=== PATIENT | female | born 1945 | race Caucasian/White ===

== ENCOUNTER → 2018-03-27 | Outpatient (CLI) | payer MEDICARE, BC ==
--- NOTE | 2018-03-27 20:02 | XCELERA REPORT ---
[address] [address] Transthoracic Echocardiogram Report Name: WINSOME WHITNEY Age: 72 yrs Gender: Female : 1945 Patient Status: Preadmit Patient Location: [facility] Study Date: 03/27/2018 03:38 PM Height: 67 in Weight: 202 lb BSA: 2.0 m2 Reason For Study: HTN Ordering Physician: DAVID PERAZA Performed By: Dayanna Roberts Interpretation Summary Mild concentric LVH (11mm) with normal LVEF 70% and stage I LV diastolic dysfunction, Inferior wall hypokinesis, no LV enlargement. 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 with no LVOT gradient. No pulm hypertension, Normal RH size. MMode/2D Measurements & Calculations RVDd: 3.7 cm LVIDd: 4.9 cm FS: 40.1 % Ao root diam: 2.4 cm IVSd: 1.0 cm LVIDs: 2.9 cm EDV(Teich): 110.3 ml LVPWd: 1.0 cm ESV(Teich): 32.4 ml Ao root area: 4.6 cm2 EF(Teich): 70.6 % LA dimension: 3.3 cm Doppler Measurements & Calculations MV E max amanda: MV P1/2t max amanda: Ao V2 max: LV V1 max P.2 cm/sec 63.2 cm/sec 138.1 cm/sec 3.3 mmHg MV A max amanda: MV P1/2t: 94.4 msec Ao max PG: LV V1 max: 78.0 cm/sec 7.6 mmHg 91.3 cm/sec MV E/A: 0.80 MVA(P1/2t): 2.3 cm2 MV dec slope: 195.9 cm/sec2 MV dec time: 0.31 sec PA V2 max: TR max amanda: 106.1 cm/sec 237.5 cm/sec PA max PG: TR max P.6 mmHg 4.5 mmHg Left Ventricle The left ventricular cavity is small. There is mild concentric left ventricular hypertrophy. IVS/PW 11/11 mm. LV EF is 70%. Doppler measurements suggest impaired left ventricular relaxation, which is associated with grade I/IV or mild diastolic dysfunction. There is inferior wall moderate hypokinesis. There is no thrombus. Right Ventricle The right ventricle is not well visualized secondary to technical limitations. The right ventricular systolic function is normal. Atria The right atrium is normal in size. The left atrial size is normal. The interatrial septum is intact with no evidence for an atrial septal defect. Mitral Valve There is mild mitral annular calcification. The mitral valve is normal in structure and function. There is no evidence of mitral valve prolapse. There is no mitral valve stenosis. There is a trace amount of mitral regurgitation. Aortic Valve The aortic valve is normal in structure and functions normally. The aortic valve is sclerotic and shows some degree of functional abnormality. The aortic valve is trileaflet. The aortic valve opens well. There is no aortic valvular vegetation. There is no aortic valve stenosis. No aortic regurgitation is present. Tricuspid Valve Right ventricular systolic pressure is normal. Best estimated RVSP is approximately 26 mm/Hg. Pulmonic Valve There is a trace or physiologic amount of pulmonic regurgitation. Great Vessels The aortic root is normal size. There is aortic root sclerosis/calcification. Effusions There is no pericardial effusion. I WMSI = 1.13 % Normal = 88 Segments Size X - Cannot 1 - Normal 2 - 3 - Akinetic4 - 1-2 small Interpret Hypokinetic Dyskinetic 3-5 moderate 5 - 6-14 large Aneurysmal 15-16 diffuse : DAVID PERAZA > Ruben Mustafa
== END ==
LOC: SP 15:21
PROVIDERS: ATTEND Family Medicine
DX: I10 Essential (primary) hypertension (principal)
CPT/HCPCS: 93306

== ENCOUNTER → 2019-03-05 | Outpatient (CLI) | payer MEDICARE, BC ==
--- NOTE | 2019-03-05 17:45 | RADIOLOGY REPORT (SQ) ---
EXAM DESCRIPTION: U/S THYROID/SFT TISS HD NECK COMPLETED DATE/TIME: 03/05/2019 5:13 pm REASON FOR STUDY: R22.1 LOCALIZED SWELLING, MASS AND LUMP, NECK R22.1 LOCALIZED SWELLING, MASS AND LUMP, NECK COMPARISON: None. TECHNIQUE: Dynamic and static grayscale images acquired of the localized site of clinical concern an d recorded on PACS. Additional selected color Doppler and spectral images recorded. SITE OF CONCERN: Neck LIMITATIONS: None. FINDINGS: SKIN AND SUBCUTANEOUS TISSUES: No masses. No fluid collections. No edema. No foreign lev s. DEEP SOFT TISSUES/MUSCLES: Normal morphology lymph node at site of indicated palpable concern. No ma sses. No fluid collections. No edema. OTHER: No other significant finding. IMPRESSION: Normal morphology lymph node at site of indicated palpable concern. NO SOFT TISSUE MASS, FLUID COLLECTION, OR FOREIGN BODY. TECHNICAL DOCUMENTATION: JOB ID: [id number] [place]-72 2010 [employer]- All Rights Reserved Reading location - IP/workstation name: [email or web address]
== END ==
LOC: RAD 16:45
PROVIDERS: ATTEND Family Medicine
DX: R22.1 Localized swelling, mass and lump, neck (principal)
CPT/HCPCS: 76536

== ENCOUNTER 2019-09-25 18:06 | Emergency (ER) | payer MEDICARE, BC ==
--- NOTE | 2019-09-25 18:40 | ER Document Report ---
ED Medical Screen (RME) - General Chief Complaint: High Blood Pressure Stated Complaint: HIGH BLOOD PRESSURE Time Seen by Provider: 09/25/19 18:27 Primary Care Provider: DAVID PERAZA MD [Primary Care Provider] - Follow up as needed Notes: 74-year-old female with uncontrolled hypertension due to medication intolerance presents to the emergency department with elevated blood pressure, chest pressure x24 hours, and brief, transient altered mental status approximately 2 days ago. Patient states the chest pressure/pain is central and radiates up into her left shoulder and neck. No diaphoresis, no nausea, no dyspnea on exertion. No neuro deficits at this time. Exam: Well-appearing no acute distress, regular cardiac rate and rhythm, S1-S2 heard, no murmurs I have greeted and performed a rapid initial assessment of this patient. A comprehensive ED assessment and evaluation of the patient, analysis of test results and completion of medical decision making process will be conducted by an additional ED providers. TRAVEL OUTSIDE OF THE [place] IN LAST 30 DAYS: No - Related Data Allergies/Adverse Reactions: doxycycline Allergy (Verified 09/25/19 18:31) erythromycin base Allergy (Verified 09/25/19 18:31) gatifloxacin [From Tequin] Allergy (Verified 09/25/19 18:31) latex Allergy (Verified 09/25/19 18:31) levofloxacin [From Levaquin] Allergy (Verified 09/25/19 18:31) metoprolol Allergy (Verified 09/25/19 18:31) mold Allergy (Verified 09/25/19 18:31) Penicillins Allergy (Verified 09/25/19 18:31) Quinolones Allergy (Verified 09/25/19 18:31) amlodipine Adverse Reaction (Verified 09/25/19 18:31) clarithromycin [From Biaxin] Adverse Reaction (Verified 09/25/19 18:31) clonidine Adverse Reaction (Verified 09/25/19 18:31) epinephrine Adverse Reaction (Verified 09/25/19 18:31) hydrochlorothiazide Adverse Reaction (Verified 09/25/19 18:31) lisinopril Adverse Reaction (Verified 09/25/19 18:31) losartan Adverse Reaction (Verified 09/25/19 18:31) montelukast Adverse Reaction (Verified 09/25/19 18:31) Past Medical History - Social History Frequency of alcohol use: None Drug Abuse: None Physical Exam - Vital signs Vitals: Temp Pulse Resp BP Pulse Ox 97.7 F 90 17 201/105 H 96 09/25/19 18:12 09/25/19 18:12 09/25/19 18:12 09/25/19 18:12 09/25/19 18:12 Course - Vital Signs Vital signs: Temp Pulse Resp BP Pulse Ox 97.7 F 90 17 201/105 H 96 09/25/19 18:12 09/25/19 18:12 09/25/19 18:12 09/25/19 18:12 09/25/19 18:12 Doctor's Discharge - Discharge Referrals: DAVID PERAZA MD [Primary Care Provider] - Follow up as needed
--- NOTE | 2019-09-25 19:18 | RADIOLOGY REPORT (SQ) ---
EXAM DESCRIPTION: CT HEAD WITHOUT COMPLETED DATE/TIME: 09/25/2019 7:06 pm REASON FOR STUDY: neuro deficit, resolved COMPARISON: None. TECHNIQUE: Axial images acquired through the brain without intravenous contrast. Images reviewed wi th bone, brain and subdural windows. Additional sagittal and coronal reconstructions were generated. Images stored on PACS. All CT scanners at this facility use dose modulation, iterative reconstruction, and/or weight based d osing when appropriate to reduce radiation dose to as low as reasonably achievable (ALARA). [facility]: Dose Right [facility]: CareDose [facility]: Dose Right [facility]: Teradose 4D [facility]: Smart Mindscore RADIATION DOSE: CT Rad equipment meets quality standard of care and radiation dose reduction techniq ues were employed. CTDIvol: 53.2 mGy. DLP: 1044 mGy-cm. mGy. LIMITATIONS: None. FINDINGS: VENTRICLES: Normal size and contour. CEREBRUM: No masses. No hemorrhage. No midline shift. No evidence for acute infarction. Normal gra y/white matter differentiation. No areas of low density in the white matter. CEREBELLUM: No masses. No hemorrhage. No alteration of density. No evidence for acute infarction. EXTRAAXIAL SPACES: No fluid collections. No masses. ORBITS AND GLOBE: No intra- or extraconal masses. Normal contour of globe without masses. CALVARIUM: No fracture. PARANASAL SINUSES: No fluid or mucosal thickening. SOFT TISSUES: No mass or hematoma. OTHER: No other significant finding. IMPRESSION: NORMAL BRAIN CT WITHOUT CONTRAST. EVIDENCE OF ACUTE STROKE: NO. COMMENT: Quality ID # [id number]: Final reports with documentation of one or more dose reduction techniques (e.g., Automated exposure control, adjustment of the mA and/or kV according to patient size, use of iterative reconstruction technique) TECHNICAL DOCUMENTATION: JOB ID: [id number] [employer]- All Rights Reserved Reading location - IP/workstation name: [email or web address]
--- NOTE | 2019-09-25 19:18 | RADIOLOGY REPORT (SQ) ---
EXAM DESCRIPTION: CHEST 2 VIEWS COMPLETED DATE/TIME: 09/25/2019 7:07 pm REASON FOR STUDY: chest pain COMPARISON: None. TECHNIQUE: Frontal and lateral radiographic views of the chest acquired. NUMBER OF VIEWS: Two view. LIMITATIONS: None. FINDINGS: LUNGS AND PLEURA: No opacities, masses or pneumothorax. No pleural effusion. MEDIASTINUM AND HILAR STRUCTURES: No masses or contour abnormalities. HEART AND VASCULAR STRUCTURES: Heart normal size. No evidence for failure. BONES: No acute findings. HARDWARE: None in the chest. OTHER: No other significant finding. IMPRESSION: NO SIGNIFICANT RADIOGRAPHIC FINDING IN THE CHEST. TECHNICAL DOCUMENTATION: JOB ID: [id number] [employer]- All Rights Reserved Reading location - IP/workstation name: [email or web address]
[2019-09-25 19:24] LABS: ABSOLUTE EOSINOPHILS # (AUTO) 0.1 10^3/uL (0.0-0.6); ABSOLUTE LYMPHOCYTES (AUTO) 1.9 10^3/uL (0.5-4.7); ABSOLUTE MONOCYTES (AUTO) 0.5 10^3/uL (0.1-1.4); ABSOLUTE NEUT (AUTO) 4.3 10^3/uL (1.7-8.2); BASOPHILS % (AUTO) 0.5 % (0-2); HEMATOCRIT 45.8 % (36.0-47.0); HEMOGLOBIN 15.4 g/dL (12.0-15.5); LYMPHOCYTES % (AUTO) 27.4 % (13-45); MEAN CORPUSCULAR HEMOGLOBIN 29.6 pg (27.0-33.4); MEAN CORPUSCULAR HGB CONC 33.6 g/dL (32.0-36.0); MEAN CORPUSCULAR VOLUME 88 fl (80-97); MONOCYTES % (AUTO) 6.9 % (3-13); PLATELET COUNT 280 10^3/uL (150-450); RED BLOOD COUNT 5.21 10^6/uL (3.72-5.28); RED CELL DISTRIBUTION WIDTH 14.6 % (11.5-14.0); SEGMENTED NEUTROPHILS % (AUTO) 63.2 % (42-78); TOTAL CELLS COUNTED % (AUTO) 100 %; WHITE BLOOD COUNT 6.8 10^3/uL (4.0-10.5)
[2019-09-25 19:43] LABS: ALKALINE PHOSPHATASE 90 U/L (38-126); ANION GAP 13 (5-19); ASPARTATE AMINO TRANSFERASE 30 U/L (14-36); BILIRUBIN,DIRECT 0.3 mg/dL (0.0-0.4); BILIRUBIN,TOTAL 0.5 mg/dL (0.2-1.3); BLOOD UREA NITROGEN 14 mg/dL (7-20); CALCIUM 10.4 mg/dL (8.4-10.2); CARBON DIOXIDE 30 mmol/L (22-30); CHLORIDE 100 mmol/L (98-107); GLUCOSE 96 mg/dL (75-110); POTASSIUM 4.7 mmol/L (3.6-5.0); TOTAL PROTEIN 8.5 g/dL (6.3-8.2)
--- NOTE | 2019-09-25 21:13 | ER Document Report ---
ED General - General Chief Complaint: High Blood Pressure Stated Complaint: HIGH BLOOD PRESSURE Time Seen by Provider: 09/25/19 18:27 Primary Care Provider: DAVID PERAZA MD [Primary Care Provider] - Follow up as needed Mode of Arrival: Ambulatory Information source: Patient Notes: 74-year-old female presented to ED for complaint of uncontrolled hypertension.. Intolerance to medications. She states she is allergic to have a blood pressure medicine there is. She states she has had some chest pressure for 24 hours with brief transient altered mental status 2 days ago. She states she did have some chest pressure and pain rating to the left shoulder and neck. No diaphoresis no nausea vomiting no dyspnea on ninth oxygen. She has a long history of high b lood pressure. There are no gross neuro deficits noted. She states she did have some numbness in her face earlier and some achiness to her left shoulder which is much milder now. Her blood pressure is 164/84 at this time. TRAVEL OUTSIDE OF THE [place] IN LAST 30 DAYS: No - HPI Onset: Other - 2 to 3 days Onset/Duration: Better Quality of pain: Achy Severity: Moderate Pain Level: 2 Associated symptoms: Other - States she had some left shoulder and neck achiness numbness to the left face Exacerbated by: Denies Relieved by: Denies Similar symptoms previously: Yes Recently seen / treated by doctor: No - Related Data Allergies/Adverse Reactions: doxycycline Allergy (Verified 09/25/19 18:31) erythromycin base Allergy (Verified 09/25/19 18:31) gatifloxacin [From Tequin] Allergy (Verified 09/25/19 18:31) latex Allergy (Verified 09/25/19 18:31) levofloxacin [From Levaquin] Allergy (Verified 09/25/19 18:31) metoprolol Allergy (Verified 09/25/19 18:31) mold Allergy (Verified 09/25/19 18:31) Penicillins Allergy (Verified 09/25/19 18:31) Quinolones Allergy (Verified 09/25/19 18:31) amlodipine Adverse Reaction (Verified 09/25/19 18:31) clarithromycin [From Biaxin] Adverse Reaction (Verified 09/25/19 18:31) clonidine Adverse Reaction (Verified 09/25/19 18:31) epinephrine Adverse Reaction (Verified 09/25/19 18:31) hydrochlorothiazide Adverse Reaction (Verified 09/25/19 18:31) lisinopril Adverse Reaction (Verified 09/25/19 18:31) losartan Adverse Reaction (Verified 09/25/19 18:31) montelukast Adverse Reaction (Verified 09/25/19 18:31) Past Medical History - General Information source: Patient - Social History Smoking Status: Never Smoker Frequency of alcohol use: None Drug Abuse: None Lives with: Family Family History: Reviewed & Not Pertinent Patient has suicidal ideation: No Patient has homicidal ideation: No - Past Medical History Cardiac Medical History: Reports: Hx Hypercholesterolemia, Hx Hypertension Pulmonary Medical History: Reports: None EENT Medical History: Reports: None Neurological Medical History: Reports: None Endocrine Medical History: Reports: Hx Hypothyroidism, Other - Hypoglycemia Renal/ Medical History: Reports: None Malignancy Medical History: Reports: None GI Medical History: Reports: Hx Gastroesophageal Reflux Disease Musculoskeletal Medical History: Reports Hx Arthritis, Reports Hx Muscul oskeletal Deformity, Reports Hx Musculoskeletal Trauma Skin Medical History: Reports None Psychiatric Medical History: Reports: Hx Anxiety Traumatic Medical History: Reports: Hx Fractures, Hx Spine Fracture Infectious Medical History: Reports: None Past Surgical History: Reports: Hx Appendectomy, Hx Section, Hx Oral Surgery - Dental surgery, Hx Orthopedic Surgery - Left knee bursa and meniscus coccyx removed due to fractures, Hx Tonsillectomy, Other - Cataracts and eye surgery Review of Systems - Review of Systems Constitutional: No symptoms reported EENT: No symptoms reported Cardiovascular: No symptoms reported, Other - Pressure to the left chest left arm Respiratory: No symptoms reported Gastrointestinal: No symptoms reported Genitourinary: No symptoms reported Female Genitourinary: No symptoms reported Musculoskeletal: No symptoms reported Skin: No symptoms reported Hematologic/Lymphatic: No symptoms reported Neurological/Psychological: Numbness - Mainly to the face -: Yes All other systems reviewed and negative Physical Exam - Vital signs Vitals: Temp Pulse Resp BP Pulse Ox 97.7 F 90 17 201/105 H 96 09/25/19 18:12 09/25/19 18:12 09/25/19 18:12 09/25/19 18:12 09/25/19 18:12 Interpretation: Normal - General General appearance: Appears well, Alert - HEENT Head: Normocephalic, Atraumatic Eyes: Normal Pupils: PERRL Ears: Normal External canal: Normal Tympanic membrane: Normal Sinus: Normal Nasal: Purulent discharge, Swelling Mouth/Lips: Normal Mucous membranes: Normal Pharynx: Post nasal drainage Neck: Normal - Respiratory Respiratory status: No respiratory distress Chest status: Nontender Breath sounds: Normal Chest palpation: Normal - Cardiovascular Rhythm: Regular Heart sounds: Normal auscultation Murmur: No - Abdominal Inspection: Normal Distension: No distension Bowel sounds: Normal Tenderness: Nontender Organomegaly: No organomegaly - Back Back: Normal, Nontender - Extremities General upper extremity: Normal inspection, Nontender, Normal color, Normal ROM, Normal temperature General lower extremity: Normal inspection, Nontender, Normal color, Normal ROM, Normal temperature, Normal weight bearing. No: Yudi's sign - Neurological Neuro grossly intact: Yes Cognition: Normal Orientation: AAOx4 Sarah Coma Scale Eye Opening: Spontaneous Sarah Coma Scale Verbal: Oriented Sarah Coma Scale Motor: Obeys Commands [place] Coma Scale Total: 15 Speech: Normal Motor strength normal: LUE, RUE, LLE, RLE Sensory: Normal - Psychological Associated symptoms: Normal affect, Normal mood - Skin Skin Temperature: Warm Skin Moisture: Dry Skin Color: Normal Course - Re-evaluation Re-evalutation: 09/25/19 23:32 CT, chest x-ray, and labs are negative. Blood pressure is down to 150s over 80s. Patient is no longer having any pain or discomfort. Patient has been instructed to follow-up with her primary care doctor as soon as he is available. She has been instructed that she can return to the ED if she continues to have any symptoms. She is not having any neurological symptoms at this time. - Vital Signs Vital signs: Temp Pulse Resp BP Pulse Ox 97.7 F 90 24 H 157/87 H 94 09/25/19 18:12 09/25/19 18:12 09/25/19 23:01 09/25/19 23:01 09/25/19 23:01 - Laboratory Result Diagrams: 09/25/19 18:50 09/25/19 18:50 Laboratory results interpreted by me: 09/25/19 09/25/19 18:50 18:50 RDW 14.6 H Calcium 10.4 H Total Protein 8.5 H - Diagnostic Test Radiology reviewed: Image reviewed, Reports reviewed Discharge - Discharge Clinical Impression: High blood pressure Qualifiers: Hypertension type: unspecified Qualified Code(s): I10 - Essential (primary) hypertension Condition: Stable Disposition: HOME, SELF-CARE Additional Instructions: HIGH BLOOD PRESSURE REQUIRING TREATMENT: Your blood pressure is high. This is called "hypertension." Today's reading was ____201/__105 (normal is less than 140/90). Your history and exam suggest that this is not a temporary problem. You need treatment of your blood pressure. If left untreated, high blood pressure greatly increases your risk of heart attack and stroke. Please don't ignore this problem. If you have blood pressure medicine but aren't using it regularly, start taking it again. Some simple things you can do to help are: Get some aerobic exercise for at least 20 minutes on a daily basis. (See your doctor before beginning any new exercise program.) Eat a low-fat diet. Lose excess weight. Avoid salty foods and avoid adding salt to any of the foods you eat. Avoid diet pills, decongestants, "energizing" herbs, and other medicines that elevate blood pressure. There are many different medicines that treat blood pressure. If your medi cation causes unpleasant side effects, call your doctor. There are others you can try. Treating hypertension is a life-long investment in your health. You state you are allergic to all blood pressure medications. You state you have tried to 3 and had side effects. There are multiple blood pressure medications. You need to work with your primary care doctor to figure out what kind of blood pressure medicine you can take to control your blood pressure. Your cardiac enzymes were negative as you did state you had some numbness. All labs and testing was negative with you will be discharged at this time. You always are welcome to come back if you have any further symptoms. FOLLOW-UP CARE: If you have been referred to a physician for follow-up care, call the physicians office for an appointment as you were instructed or within the next two days. If you experience worsening or a significant change in your symptoms, notify the physician immediately or return to the Emergency Department at any time for re-evaluation. Forms: Elevated Blood Pressure Referrals: DAVID PERAZA MD [Primary Care Provider] - Follow up in 3-5 days
[2019-09-26 00:03] VITALS: BP 146/57
--- NOTE | 2019-09-26 07:45 | EKG REPORT ---
SEVERITY:- ABNORMAL ECG - SINUS RHYTHM INCOMPLETE RIGHT BUNDLE BRANCH BLOCK : Confirmed by: Ruben Mustafa MD 26-Sep-2019 07:44:28
== END 2019-09-26 00:02 | disposition home or self-care (01) ==
LOC: ER 18:06
DX: I10 Essential (primary) hypertension (principal); R41.82 Altered mental status, unspecified; R07.9 Chest pain, unspecified; E78.00 Pure hypercholesterolemia, unspecified; E03.9 Hypothyroidism, unspecified; Z88.3 Allergy status to other anti-infective agents; Z88.0 Allergy status to penicillin
CPT/HCPCS: 36415; 70450; 71046; 80053; 84484; 85025; 93005; 93010; 99284